=== PATIENT | female | born 1940 | race African-American/Black ===

== ENCOUNTER 2018-10-04 09:15 | Emergency (ER) | payer MEDICARE ==
[~2018-10-04] VITALS: Ht 167.6 cm; Wt 100.0 kg
[2018-10-04 11:22] LABS: BASOPHILS % 0.3 % (0.0-2.0); EOSINOPHILS % 1.5 % (0.0-5.0); HEMATOCRIT. 33.6 % (36.0-48.0); HEMOGLOBIN. 11.3 g/dL (12.0-16.0); LYMPHOCYTES % 22.5 % (20.0-50.0); MEAN CORPUSCULAR HEMOGLOBIN 28.9 pg (28.0-32.0); MEAN CORPUSCULAR VOLUME 85.6 fL (81.0-99.0); MEAN PLATELET VOLUME 7.6 fl (7.4-10.4); MONOCYTES % 8.5 % (2.0-8.0); NEUTROPHILS % 67.2 % (40.0-76.0); PLATELET 366 x1000/uL (130-400); RED BLOOD CELL COUNT 3.93 mill/uL (4.2-5.4); RED CELL DISTRIBUTION WIDTH 14.7 % (11.6-14.6)
[2018-10-04 11:29] LABS: CHLORIDE 109 mEq/L (98-107)
[2018-10-04 11:30] LABS: PARTIAL THROMBOPLASTIN TIME 31.8 sec (23.4-31.0); PROTHROMBIN TIME 10.4 sec (9.6-11.0)
[2018-10-04] MEDS ORDERED: HYDRALAZINE 20MG/ML VIAL IV ONE (14:15)
[2018-10-04 14:47] VITALS: BP 164/81
[2018-10-04 15:01] LABS: CLARITY URINE CLOUDY (CLEAR); COLOR URINE YELLOW (YELLOW); KETONES URINE TRACE (NEGATIVE); LEUKOCYTE ESTERASE URINE 2+ (NEGATIVE); NITRITE URINE POSITIVE (NEGATIVE); OCCULT BLOOD URINE TRACE (NEGATIVE); PROTEIN URINE NEGATIVE (NEGATIVE); SPECIFIC GRAVITY URINE 1.012 (1.005-1.030)
== END 2018-10-04 14:48 | disposition home or self-care (01) ==
LOC: ER 09:15
DX: R55 Syncope and collapse (principal); S82.51XA Displaced fracture of medial malleolus of right tibia, initial encounter for closed fracture; X58.XXXA Exposure to other specified factors, initial encounter; Y93.89 Activity, other specified; Y92.9 Unspecified place or not applicable; I10 Essential (primary) hypertension
CPT/HCPCS: 29515; 36415; 70450; 71045; 72125; 73610; 73630; 80053; 81003; 83880; 84484; 85025; 85610; 85730; 87077; 87086; 87186; 93005; 96374; 99284; J0360

== ENCOUNTER 2020-01-13 07:00 | Inpatient (IN) | payer MEDICARE, OTHER ==
[~2020-01-13] VITALS: Ht 170.2 cm; Wt 73.5 kg
[2020-01-13] MEDS ORDERED: HALOPERIDOL LACTATE 5MG/ML VIAL IM ONE (10:45)
[2020-01-13] MEDS: LORAZEPAM 2MG/ML CPJ IM PRN (11:53)
[2020-01-13 13:14] LABS: BASOPHILS % 0.4 % (0.0-2.0); EOSINOPHILS % 0.4 % (0.0-5.0); HEMATOCRIT. 27.9 % (36.0-48.0); HEMOGLOBIN. 9.2 g/dL (12.0-16.0); MEAN CORPUSCULAR HEMOGLOBIN 28.3 pg (28.0-32.0); MEAN CORPUSCULAR VOLUME 85.9 fL (81.0-99.0); MEAN PLATELET VOLUME 7.5 fl (7.4-10.4); MONOCYTES % 6.7 % (2.0-8.0); NEUTROPHILS % 80.5 % (40.0-76.0); PLATELET 595 x1000/uL (130-400); RED BLOOD CELL COUNT 3.24 mill/uL (4.2-5.4); RED CELL DISTRIBUTION WIDTH 19.1 % (11.6-14.6)
[2020-01-13] MEDS ORDERED: VANCOMYCIN 1 G PREMIX 200 ML IV SCH (13:15)
[2020-01-13] MEDS ORDERED: NOREPINEPHRINE 8 MG in DEXT 5% WATER 242 ML IV PRN (13:15)
[2020-01-13] MEDS ORDERED: PIPERACILLIN/TAZOBACTAM 3.375GM/50ML PREMIX IV ONE (13:15)
[2020-01-13] MEDS ORDERED: SODIUM CHLORIDE 0.9% 1,000 ML IV ONE ×2 (13:15)
[2020-01-13] MEDS ORDERED: PIPERACILLIN/TAZ 3.375G PREMIX 50 ML IV SCH ×3 (13:15→18:00)
[2020-01-13 13:24] LABS: CLARITY URINE TURBID (CLEAR); COLOR URINE DARK YELLOW (YELLOW); KETONES URINE NEGATIVE (NEGATIVE); LEUKOCYTE ESTERASE URINE 3+ (NEGATIVE); NITRITE URINE NEGATIVE (NEGATIVE); OCCULT BLOOD URINE 1+ (NEGATIVE); PH URINE 7.5 (4.5-8.0); PROTEIN URINE 2+ (NEGATIVE); SPECIFIC GRAVITY URINE 1.015 (1.005-1.030)
[2020-01-13 13:27] LABS: CHLORIDE 113 mEq/L (98-107)
[2020-01-13] MEDS ORDERED: ACETAMINOPHEN 650MG/20.3ML UDC GT PRN (13:30)
[2020-01-13] MEDS: DEXT 5%/0.45% NACL 1000ML 1,000 ML IV SCH (13:30)
[2020-01-13 13:32] LABS: ETHANOL BLOOD < 10 mg/dL
[2020-01-13 14:11] LABS: *AMPHETAMINES SCREEN URINE NEGATIVE (NEGATIVE); *COCAINE SCREEN URINE NEGATIVE (NEGATIVE); CANNABINOID URINE SCREEN NEGATIVE (NEGATIVE); METHADONE URINE SCREEN NEGATIVE (NEGATIVE); OPIATES URINE SCREEN PRESUMTIVE POSITIVE (NEGATIVE); PHENCYCLIDINE URINE SCREEN NEGATIVE (NEGATIVE)
[2020-01-13 14:12] LABS: *BENZODIAZEPINES SCREEN URINE NEGATIVE (NEGATIVE)
[2020-01-13 14:13] LABS: *BARBITURATES SCREEN URINE NEGATIVE (NEGATIVE)
[2020-01-13 21:30] VITALS: BP 143/76
[2020-01-14] VITALS (13 sets, daily range): BP systolic 82–124; BP diastolic 29–86
[2020-01-14] MEDS: ONDANSETRON HCL 4MG/2ML INJ IV PRN ×2 (00:14→21:20)
[2020-01-14] MEDS: PIPERACILLIN/TAZOBACTAM 3.375 G in DEXT 5% WATER 100 ML IV SCH ×4 (00:46→18:14)
[2020-01-14] MEDS: DEXT 5%/0.45% NACL 1000ML 1,000 ML IV SCH ×2 (00:48→16:09)
[2020-01-14] MEDS: MIDODRINE HCL 5MG TABLET NG SCH (18:15)
[2020-01-15] VITALS (13 sets, daily range): BP systolic 90–152; BP diastolic 36–102
[2020-01-15] MEDS: PIPERACILLIN/TAZOBACTAM 3.375 G in DEXT 5% WATER 100 ML IV SCH ×5 (00:17→23:05)
[2020-01-15 06:17] LABS: CHLORIDE 113 mEq/L (98-107)
[2020-01-15] MEDS: DEXT 5%/0.45% NACL 1000ML 1,000 ML IV SCH ×2 (06:17→17:04)
[2020-01-15 07:00] LABS: BASOPHILS % 0.5 % (0.0-2.0); EOSINOPHILS % 2.2 % (0.0-5.0); HEMATOCRIT. 23.6 % (36.0-48.0); HEMOGLOBIN. 7.8 g/dL (12.0-16.0); LYMPHOCYTES % 15.6 % (20.0-50.0); MEAN CORPUSCULAR HEMOGLOBIN 28.4 pg (28.0-32.0); MEAN PLATELET VOLUME 7.8 fl (7.4-10.4); MONOCYTES % 8.5 % (2.0-8.0); NEUTROPHILS % 73.2 % (40.0-76.0); PLATELET 442 x1000/uL (130-400); RED BLOOD CELL COUNT 2.75 mill/uL (4.2-5.4); RED CELL DISTRIBUTION WIDTH 19.2 % (11.6-14.6)
[2020-01-15] MEDS: MIDODRINE HCL 5MG TABLET NG SCH ×3 (08:26→17:03)
[2020-01-15] MEDS ORDERED: POTASSIUM CHLORIDE INJ 40 MEQ in DEXT 5% WATER 250 ML IV SCH ×2 (09:00→13:00)
[2020-01-15] MEDS: ONDANSETRON HCL 4MG/2ML INJ IV PRN (17:04)
[2020-01-15] MEDS: MORPHINE SULFATE 2 MG/ML CPJ (NOT FOR IM USE) IV PRN (21:40)
[2020-01-16] VITALS (8 sets, daily range): BP systolic 108–153; BP diastolic 66–98
[2020-01-16] MEDS: PIPERACILLIN/TAZOBACTAM 3.375 G in DEXT 5% WATER 100 ML IV SCH ×3 (05:11→17:28)
[2020-01-16] MEDS: MIDODRINE HCL 5MG TABLET NG SCH ×3 (08:06→17:00)
[2020-01-16] MEDS: DEXT 5%/0.45% NACL 1000ML 1,000 ML IV SCH ×2 (08:07→20:57)
[2020-01-16 09:42] LABS: BASOPHILS % 0.3 % (0.0-2.0); HEMATOCRIT. 23.8 % (36.0-48.0); LYMPHOCYTES % 15.9 % (20.0-50.0); MEAN CORPUSCULAR HEMOGLOBIN 28.6 pg (28.0-32.0); MEAN CORPUSCULAR VOLUME 84.8 fL (81.0-99.0); MEAN PLATELET VOLUME 7.8 fl (7.4-10.4); MONOCYTES % 8.8 % (2.0-8.0); PLATELET 456 x1000/uL (130-400); RED CELL DISTRIBUTION WIDTH 19.2 % (11.6-14.6)
[2020-01-16 09:53] LABS: CHLORIDE 116 mEq/L (98-107)
[2020-01-16] MEDS ORDERED: POTASSIUM CHLORIDE INJ 40 MEQ in DEXT 5% WATER 250 ML IV NR (12:00)
[2020-01-16] MEDS ORDERED: MAGNESIUM 2 G PREMIX 50 ML IV NR (12:00)
[2020-01-16] MEDS: THIAMINE HCL 100MG TABLET PO SCH (17:27)
[2020-01-16 19:57] LABS: VITAMIN B12 SERUM 668 pg/mL (211-911)
[2020-01-17] VITALS (16 sets, daily range): BP systolic 108–156; BP diastolic 43–89
[2020-01-17] MEDS: PIPERACILLIN/TAZOBACTAM 3.375 G in DEXT 5% WATER 100 ML IV SCH ×2 (00:47→05:04)
[2020-01-17 07:39] LABS: BASOPHILS % 0.4 % (0.0-2.0); EOSINOPHILS % 1.9 % (0.0-5.0); HEMATOCRIT. 23.1 % (36.0-48.0); HEMOGLOBIN. 7.7 g/dL (12.0-16.0); LYMPHOCYTES % 15.8 % (20.0-50.0); MEAN CORPUSCULAR HEMOGLOBIN 28.4 pg (28.0-32.0); MEAN CORPUSCULAR VOLUME 85.1 fL (81.0-99.0); MEAN PLATELET VOLUME 7.5 fl (7.4-10.4); MONOCYTES % 9.7 % (2.0-8.0); NEUTROPHILS % 72.2 % (40.0-76.0); PLATELET 399 x1000/uL (130-400); RED BLOOD CELL COUNT 2.71 mill/uL (4.2-5.4); RED CELL DISTRIBUTION WIDTH 18.8 % (11.6-14.6)
[2020-01-17 08:49] LABS: CHLORIDE 115 mEq/L (98-107)
[2020-01-17] MEDS: MIDODRINE HCL 5MG TABLET NG SCH (10:01)
[2020-01-17] MEDS: THIAMINE HCL 100MG TABLET PO SCH (10:02)
[2020-01-17] MEDS ORDERED: POTASSIUM CHLORIDE INJ 40 MEQ in DEXT 5% WATER 250 ML IV NR (13:00)
[2020-01-17] MEDS: ONDANSETRON HCL 4MG/2ML INJ IV PRN (14:38)
[2020-01-17] MEDS: MEMANTINE HCL 5MG TABLET PO SCH (21:38)
[2020-01-18] VITALS (11 sets, daily range): BP systolic 118–168; BP diastolic 72–87
[2020-01-18 06:27] LABS: BASOPHILS % 0.2 % (0.0-2.0); HEMATOCRIT. 23.6 % (36.0-48.0); HEMOGLOBIN. 7.9 g/dL (12.0-16.0); LYMPHOCYTES % 21.4 % (20.0-50.0); MEAN CORPUSCULAR HEMOGLOBIN 28.7 pg (28.0-32.0); MEAN CORPUSCULAR VOLUME 86.3 fL (81.0-99.0); MEAN PLATELET VOLUME 7.9 fl (7.4-10.4); NEUTROPHILS % 67.4 % (40.0-76.0); PLATELET 412 x1000/uL (130-400); RED BLOOD CELL COUNT 2.74 mill/uL (4.2-5.4); RED CELL DISTRIBUTION WIDTH 19.1 % (11.6-14.6)
[2020-01-18 06:29] LABS: CHLORIDE 116 mEq/L (98-107)
[2020-01-18] MEDS: MORPHINE SULFATE 2 MG/ML CPJ (NOT FOR IM USE) IV PRN ×2 (06:56→17:45)
[2020-01-18] MEDS: THIAMINE HCL 100MG TABLET PO SCH (08:51)
[2020-01-18] MEDS: MEMANTINE HCL 5MG TABLET PO SCH ×2 (08:51→21:11)
[2020-01-19] VITALS (12 sets, daily range): BP systolic 135–173; BP diastolic 67–96
[2020-01-19] MEDS: MORPHINE SULFATE 2 MG/ML CPJ (NOT FOR IM USE) IV PRN ×2 (04:37→18:24)
[2020-01-19] MEDS: MEMANTINE HCL 5MG TABLET PO SCH ×2 (09:05→20:43)
[2020-01-19] MEDS: THIAMINE HCL 100MG TABLET PO SCH (09:05)
[2020-01-19] MEDS: LORAZEPAM 2MG/ML CPJ IV PRN ×2 (09:06→20:59)
[2020-01-19] MEDS: METOPROLOL TARTRATE 25MG TABLET PO SCH (20:44)
[2020-01-20] VITALS (12 sets, daily range): BP systolic 114–177; BP diastolic 45–95
[2020-01-20 06:08] LABS: BASOPHILS % 0.5 % (0.0-2.0); EOSINOPHILS % 1.3 % (0.0-5.0); HEMATOCRIT. 23.5 % (36.0-48.0); HEMOGLOBIN. 7.9 g/dL (12.0-16.0); LYMPHOCYTES % 13.9 % (20.0-50.0); MEAN CORPUSCULAR HEMOGLOBIN 29.2 pg (28.0-32.0); MEAN CORPUSCULAR VOLUME 87.4 fL (81.0-99.0); MEAN PLATELET VOLUME 7.4 fl (7.4-10.4); NEUTROPHILS % 74.3 % (40.0-76.0); PLATELET 411 x1000/uL (130-400); RED BLOOD CELL COUNT 2.69 mill/uL (4.2-5.4); RED CELL DISTRIBUTION WIDTH 19.6 % (11.6-14.6)
[2020-01-20] MEDS ORDERED: MORPHINE SULFATE 2 MG/ML CPJ (NOT FOR IM USE) IV PRN (06:15)
[2020-01-20 08:26] LABS: CHLORIDE 119 mEq/L (98-107)
[2020-01-20] MEDS: MEMANTINE HCL 5MG TABLET PO SCH ×2 (09:00→21:00)
[2020-01-20] MEDS: THIAMINE HCL 100MG TABLET PO SCH (09:00)
[2020-01-20] MEDS: METOPROLOL TARTRATE 25MG TABLET PO SCH ×2 (09:00→21:00)
[2020-01-20] MEDS: LORAZEPAM 2MG/ML CPJ IV PRN ×2 (09:12→17:44)
[2020-01-20] MEDS: RISPERIDONE 0.5MG TABLET PO SCH (16:18)
[2020-01-20] MEDS: KETOROLAC 15MG/ML VIAL IV PRN (23:21)
[2020-01-21] VITALS (9 sets, daily range): BP systolic 129–181; BP diastolic 50–92
[2020-01-21] MEDS: LORAZEPAM 2MG/ML CPJ IV PRN (01:44)
[2020-01-21] MEDS: KETOROLAC 15MG/ML VIAL IV PRN (06:04)
[2020-01-21] MEDS: ONDANSETRON HCL 4MG/2ML INJ IV PRN (06:05)
[2020-01-21] MEDS: METOPROLOL TARTRATE 25MG TABLET PO SCH ×2 (09:48→22:42)
[2020-01-21] MEDS: MEMANTINE HCL 5MG TABLET PO SCH ×2 (09:48→22:42)
[2020-01-21] MEDS: THIAMINE HCL 100MG TABLET PO SCH (09:48)
[2020-01-21] MEDS: RISPERIDONE 0.5MG TABLET PO SCH ×2 (09:49→17:00)
[2020-01-21] MEDS: SODIUM CHLORIDE 0.45% 1,000 ML IV SCH (19:01)
[2020-01-21] MEDS: PANTOPRAZOLE SODIUM 40 MG/VIAL IV SCH (22:42)
[2020-01-22] VITALS: BP 121/73
[2020-01-22 04:00] VITALS: BP 122/61
[2020-01-22 05:54] LABS: INR 1.2; PROTHROMBIN TIME 12.1 sec (9.6-11.0)
[2020-01-22 06:07] LABS: BASOPHILS % 0.3 % (0.0-2.0); EOSINOPHILS % 2.3 % (0.0-5.0); HEMOGLOBIN. 8.1 g/dL (12.0-16.0); LYMPHOCYTES % 13.4 % (20.0-50.0); MEAN CORPUSCULAR HEMOGLOBIN 28.5 pg (28.0-32.0); MEAN CORPUSCULAR VOLUME 87.9 fL (81.0-99.0); MEAN PLATELET VOLUME 7.3 fl (7.4-10.4); MONOCYTES % 8.5 % (2.0-8.0); NEUTROPHILS % 75.5 % (40.0-76.0); PLATELET 448 x1000/uL (130-400); RED BLOOD CELL COUNT 2.84 mill/uL (4.2-5.4); RED CELL DISTRIBUTION WIDTH 20.5 % (11.6-14.6)
[2020-01-22 06:16] LABS: CHLORIDE 122 mEq/L (98-107)
[2020-01-22 06:29] LABS: TOTAL IRON BINDING CAPACITY 137 ug/dL (250-450)
[2020-01-22 08:00] VITALS: BP 126/66
[2020-01-22] MEDS: PANTOPRAZOLE SODIUM 40 MG/VIAL IV SCH ×2 (08:26→21:53)
[2020-01-22] MEDS: METOPROLOL TARTRATE 25MG TABLET PO SCH ×2 (09:00→21:53)
[2020-01-22] MEDS: THIAMINE HCL 100MG TABLET PO SCH (09:00)
[2020-01-22] MEDS: MEMANTINE HCL 5MG TABLET PO SCH ×2 (09:00→21:53)
[2020-01-22] MEDS: RISPERIDONE 0.5MG TABLET PO SCH ×2 (09:00→21:52)
[2020-01-22] MEDS: LORAZEPAM 2MG/ML CPJ IV PRN ×2 (09:35→21:53)
[2020-01-22] MEDS ORDERED: KCL 20MEQ/100ML PREMIX 100 ML IV SCH (10:00)
[2020-01-22] MEDS: SODIUM CHLORIDE 0.45% 1,000 ML IV SCH (10:11)
[2020-01-22 12:00] VITALS: BP 112/64
[2020-01-22] MEDS ORDERED: CEFAZOLIN 1000MG PREMIX 50 ML IV SCH (12:45)
[2020-01-22] MEDS ORDERED: MIDAZOLAM HCL 5 MG/5 ML VIAL ONE (15:46)
[2020-01-22] MEDS ORDERED: FENTANYL CITRATE/PF 50MCG/ML 2ML VIAL ONE (15:46)
[2020-01-22] MEDS ORDERED: MIDAZOLAM HCL 5 MG/5 ML VIAL IV PRN (16:20)
[2020-01-22 20:00] VITALS: BP 130/76
[2020-01-23] VITALS: BP 166/87
[2020-01-23 04:00] VITALS: BP 139/77
[2020-01-23] MEDS: LORAZEPAM 2MG/ML CPJ IV PRN (06:33)
[2020-01-23 08:00] VITALS: BP 140/74
[2020-01-23] MEDS ORDERED: FAMOTIDINE 20MG/2ML VIAL IV SCH (09:00)
[2020-01-23] MEDS ORDERED: ASCORBIC ACID 500 MG TABLET PO SCH (09:00)
[2020-01-23] MEDS: METOPROLOL TARTRATE 25MG TABLET PO SCH (09:19)
[2020-01-23] MEDS: FERROUS SULFATE 325MG TABLET PO SCH ×2 (09:19→16:27)
[2020-01-23] MEDS: MEMANTINE HCL 5MG TABLET PO SCH (09:19)
[2020-01-23] MEDS: RISPERIDONE 0.5MG TABLET PO SCH ×2 (09:20→16:27)
[2020-01-23] MEDS: SODIUM CHLORIDE 0.45% 1,000 ML IV SCH (09:20)
[2020-01-23] MEDS: THIAMINE HCL 100MG TABLET PO SCH (09:20)
[2020-01-23 15:54] VITALS: BP 139/78
[2020-01-23 16:00] VITALS: BP 142/78
[2020-01-23 20:00] VITALS: BP 152/82
== END 2020-01-23 20:23 | DRG 871 ==
LOC: ER 07:00 → 5EST 12:07 → EDBEDREQ 12:11 → EDBEDREQTM 12:11 → ENRESERV 20:24 → 6EST 01-21 11:45
PROVIDERS: ADMIT Hospitalist; ATTEND Hospitalist
PROC: 06HY33Z Insertion of Infusion Device into Lower Vein, Percutaneous Approach (ICD-10-PCS; 2020-01-13)
PROC: B54CZZA Ultrasonography of Left Lower Extremity Veins, Guidance (ICD-10-PCS; 2020-01-13)
PROC: 4A00X4Z Measurement of Central Nervous Electrical Activity, External Approach (ICD-10-PCS; principal; 2020-01-17)
PROC: 0DH63UZ Insertion of Feeding Device into Stomach, Percutaneous Approach (ICD-10-PCS; 2020-01-22)
DX: A41.9 Sepsis, unspecified organism (principal); E43 Unspecified severe protein-calorie malnutrition; G93.40 Encephalopathy, unspecified; N39.0 Urinary tract infection, site not specified; J98.11 Atelectasis; I10 Essential (primary) hypertension; E83.42 Hypomagnesemia; E87.6 Hypokalemia; F03.90 Unspecified dementia, unspecified severity, without behavioral disturbance, psychotic disturbance, mood disturbance, and anxiety; E66.9 Obesity, unspecified; Z20.828 Contact with and (suspected) exposure to other viral communicable diseases; I95.9 Hypotension, unspecified; R74.01 Elevation of levels of liver transaminase levels; X58.XXXA Exposure to other specified factors, initial encounter; D50.9 Iron deficiency anemia, unspecified; Z89.612 Acquired absence of left leg above knee; I73.9 Peripheral vascular disease, unspecified; S30.0XXA Contusion of lower back and pelvis, initial encounter; K29.70 Gastritis, unspecified, without bleeding; R13.12 Dysphagia, oropharyngeal phase; Z93.1 Gastrostomy status; Z68.25 Body mass index [BMI] 25.0-25.9, adult; Y93.89 Activity, other specified; Y92.89 Other specified places as the place of occurrence of the external cause; Y99.8 Other external cause status; Z71.3 Dietary counseling and surveillance
CPT/HCPCS: 36415; 71045; 73700; 80048; 80053; 80305; 80307; 80320; 80329; 81003; 82140; 82607; 82728; 82962; 83540; 83550; 83605; 83735; 84443; 84450; 84484; 85025; 85044; 87426; 92610; 93005; 93970; 95816; 96372; 99291; A6261; C9113; J0690; J1630; J1885; J2060; J2250; J2270; J2405; J2543; J3010; J3370; J3475; J3480; J3490; J7030; J7060; G0480